=== PATIENT | male | born 1990 | race Asian ===

== ENCOUNTER 2020-06-08 16:32 | Emergency (ER) | payer OTHER ==
[~2020-06-08] VITALS: Ht 162.6 cm; Wt 68.0 kg
[2020-06-08 16:45] VITALS: BP 140/90
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
[2020-06-08] MEDS ORDERED: Methocarbamol 750mg tab ORAL ONE (17:00)
[2020-06-08] MEDS ORDERED: Ketorolac 30mg Inj IM ONE (17:00)
--- NOTE | 2020-06-08 17:10 | NUR ---
ED Nurse Note: patient was taken to CT via wheelchair
--- NOTE | 2020-06-08 17:22 | NUR ---
ED Nurse Note: patient is back, NAD noted
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
[2020-06-08] MEDS ORDERED: ROBAXIN-500MG ORAL (18:09)
[2020-06-08] MEDS ORDERED: LIDODERM700 M1 TOPIC (18:09)
[2020-06-08] MEDS ORDERED: IBU800 MG PO (18:09)
[2020-06-08 18:20] VITALS: BP 140/90
--- NOTE | 2020-06-08 18:20 | NUR ---
ED Nurse Note: Pt cleared by health care Provider for discharge. DC instructions/prescription was given and explained to pt and verbalized understanding of teachings. All medical deviecs such as ID band removed. Pt is AAO x4, ambulatory and left with all personal belongings.
== END 2020-06-08 18:20 | disposition home or self-care (01) ==
LOC: EDBD 16:32 → EMR 16:45
DX: S16.1XXA Strain of muscle, fascia and tendon at neck level, initial encounter (principal); S39.012A Strain of muscle, fascia and tendon of lower back, initial encounter; S20.219A Contusion of unspecified front wall of thorax, initial encounter; V43.52XA Car driver injured in collision with other type car in traffic accident, initial encounter; Y92.9 Unspecified place or not applicable; N20.0 Calculus of kidney
CPT/HCPCS: 71250; 72125; 72131; 74176; 96372; 99284; J1885